=== PATIENT | female | born 1955 | race Caucasian/White ===

== ENCOUNTER 2025-05-10 16:29 | Observation (INO) | payer MEDICARE, SELFPAY ==
[2025-05-10] VITALS (13 sets, daily range): BP systolic 110–158; BP diastolic 56–71; BMI 28.8; BMI 27.9
[2025-05-10] MEDS: NSS 1000 IV (11:31)
[2025-05-10] MEDS: MORPHINE SULFATE 4 MG IV (11:32)
[2025-05-10 11:42] LABS: Hematocrit 29.4 % (37.0-47.0); Hemoglobin 10.1 g/dL (12.0-16.0); Mean Corp Hgb Conc. 34.4 g/dL (33.0-37.0); Mean Corpuscular Volume 107.7 fL (81.0-99.0); Nucleated Red Blood Cells % 0 %; Platelet Count 136 10^3/uL (130-400); Red Cell Dist. Width 18.5 % (11.5-14.5)
--- NOTE | 2025-05-10 11:56 | ED.GENMED ---
History of Present Illness
General
Chief Complaint: Generalized Pain
Source: patient
Exam Limitations: clinical condition
Time Seen by Provider: 05/10/25 10:55
Nursing documentation reviewed up to this point in time: agreed with
History of Present Illness
History of Present Illness:
Patient is a 69-year-old female with history of metastatic breast CA who presents emergency department via EMS after slip from her bed. Patient states she slighted off of her bed landing on her right side. She did not strike her head. 911 was
called to assist her back up and given her discomfort they transported her to the emergency department.
Patient states she had a headache and route to the emergency department however it is since resolved. She has pain in her right hip/pelvis. No neck pain or back pain. No chest pain or shortness of breath. No abdominal pain.
According to EMS records�patient is currently on hospice care. They arrived at her home and found her covered in urine and feces.
I spoke to patient's daughter on the phone who states that her mom was placed on hospice care last week after discharge from [facility]. She was under the impression that hospice care would assist in changing/cleaning her mom. She is not
sure how this hospice process works and is not confident that home is the best place for her mom.
Apparently patient's also lives in the home.
Review of Systems
Review of Systems
Allergies reviewed?: Yes
All Other Systems: ROS reviewed and negative except as documented in HPI and ROS
Phy Exam
Physical Exam
Physical Exam:
Vitals: Mildly hypertensive, otherwise vital signs stable. Afebrile
General: Patient is chronically ill and weak appearing.
Skin: Warm and dry. Ecchymosis noted to right inguinal region.
Head: Normocephalic, atraumatic
Eyes: Sclera nonicteric. EOMs intact. No nystagmus.
Throat: Protecting airway
Neck: Normal ROM, no cervical spine tenderness, no meningismus
Cardiac: Regular rate and rhythm, no murmurs.
Pulm: Normal respiratory effort, no wheezes, rales, rhonchi heard on exam
Abdomen: Abdomen soft and nontender
Extremities: Tenderness palpation in right hip/right inguinal region. No obvious deformity of right lower extremity. She has decent range of motion in right knee and right hip without discomfort. Tenderness to left shoulder without obvious
deformity. Limited range of motion secondary to pain. Distal pulses intact in bilateral upper and lower extremities
Neuro: AAOx3. No focal neurologic deficits.
Psychiatric: Normal affect.
Course
Orders/Labs/Results
Orders:
Orders
05/10/25 11:04
CT Head W/o Iv Contrast Urgent
Comment:
Reason For Exam: unwitnessed fall
Cervical Spine wo Contrast CT [CT Cervical Spine W/o Iv Contr] Urgent
Comment:
Reason For Exam: unwitnessed fall
0.9% Sodium Chloride 1000 ml [Nss] 1,000 ml IV BOLUS
Morphine Sulfate 4 mg IV NOW STA
Hips, Bilat 5 view W/AP Pelvis [CR Hips STACY w/wo Pel Min 5 Vw*] Urgent
Comment:
Reason For Exam: fall
Include a pelvis x-ray?: Yes
Shoulder, Left 2 View CR [CR Shoulder - Left Min 2 View*] Urgent
Comment:
Reason For Exam: fall, pain
05/10/25 11:19
Complete Blood Count/With Diff Urgent
Comprehensive Metabolic Panel Urgent
Creatine Phosphokinase Urgent
Comment: ADD
05/10/25 11:24
Case Management Consult ONCE
Case Management Consult: Hospice
Hospice: Evaluation and treat
05/10/25 12:01
Add On- LAB Urgent
Tests Added?: CPK
05/10/25 Dinner
Regular
At Your Request: Limited Participation
05/10/25 16:01
Admit/Transfer Patient As Directed
Co-Sign Provider:
Level of Care: Observation services
Assign to:: Inpatient Hospice
Physician / Group: [email or web address]
Diagnosis: Fall
05/10/25 16:02
Code Status As Directed
Resuscitation Status: Do not resuscitate
Reached after discussion with pt or family/Healthcare POA: Yes
DNR Bracelet Application ONCE
05/10/25 19:31
Acetaminophen [Tylenol] 650 mg PO Q4HPRN PRN
Ondansetron Injectable [Zofran] 4 mg IV Q6HPRN PRN
05/10/25 19:31
Admit Patient As Directed
Co-Sign Provider:
Level of Care: Inpatient admission
Assign to:: Inpatient Hospice
Physician / Group: hospitalists
Diagnosis: fall and not safe to go home
Reason for Hospitalization: Fall , pending respite care , unsafe to go home
Expected length of stay greater than two midnights?: Yes
ELOS- Estimated Length of Stay in days: 3
I certify the patient meets the requirements for IP care: Yes
VTE Contraindication Routine
VTE Mechanical Device Contraindication: Comfort Care mgmt
Pharmocologic Contraindication: Comfort Care mgmt
Activity As Directed
Activity Level: With Assistance
Comfort Measures As Directed
Comment: Pain and Dyspnea assessment every 4 hours
End of Life Symptom Assessment Q4
Vital Signs As Directed
Frequency: Per unit guidelines
05/10/25 19:36
Morphine Sulfate 4 mg IV Q4HPRN PRN
Abnormal Lab Results
05/10/25
11:19
RBC 2.73 L 10^6/uL
(4.20-5.40)
Hgb 10.1 L g/dL
(12.0-16.0)
Hct 29.4 L %
(37.0-47.0)
MCV 107.7 H fL
(81.0-99.0)
MCH 37.0 H pg
(27.0-31.0)
RDW 18.5 H %
(11.5-14.5)
MPV 10.9 H fL
(7.4-10.4)
Absolute Lymphs (auto) 0.5 L 10^3/uL
(1.2-3.4)
Absolute Monos (auto) 0.7 H 10^3/uL
(0.1-0.6)
Immature Gran % 0.7 H %
(0-0.5)
Lymphocytes % 8.5 L %
(20.5-51.1)
Monocytes % 13.3 H %
(1.7-9.3)
BUN 25 H mg/dl
(7-17)
Creatinine 1.6 H mg/dL
(0.6-1.0)
Glucose 107 H mg/dl
(70-99)
Calcium 11.0 H mg/dl
(8.4-10.2)
Total Bilirubin 2.5 H mg/dl
(0.2-1.3)
AST 94 H U/L
(14-36)
Alkaline Phosphatase 240 H U/L
(38-126)
Creatine Kinase 301 H U/L
(30-135)
Total Protein 5.9 L g/dl
(6.3-8.2)
Albumin 3.2 L g/dl
(3.5-5.0)
05/10/25 11:19
05/10/25 11:19
Vital Signs
Initial and Last Documented VS:
Initial Vital Signs
Pulse Resp
74 13
05/10/25 07:40 05/10/25 07:40
Last Documented Vital Signs
Temp Pulse Resp BP Pulse Ox
97.7 F 72 16 127/65 97
05/10/25 23:42 05/10/25 23:42 05/10/25 23:42 05/10/25 23:42 05/10/25 23:42
MDM/Problems Addressed
Differential Diagnosis Includes:
Not limited to: Hip fracture, pelvic fracture, acute dehydration, rhabdomyolysis, progression of disease, elder abuse, etc.
MDM/Problems Addressed:
71-year-old chronically ill female presented via EMS after being found on the floor following a fall from bed. Unknown head strike. EMS reported the patient was found saturated in urine and feces. On arrival to ED, patient appeared chronically ill
but was hemodynamically stable and alert and oriented. No obvious external traumatic injuries noted, but patient reported tenderness in right hip and left shoulder.
Initially unclear whether patient was enrolled in hospice care. Proceeded with standard trauma workup including labs, non-contrast CT of the head and cervical spine, and imaging of right hip and left shoulder to evaluate for occult injuries.
Spoke with patient�s daughter who confirmed that the patient is on hospice for metastatic breast cancer, but expressed that she is currently unable to provide adequate care at home given the patient�s needs.
Basic lab work was notable for anemia and elevated liver function tests, both likely related to known metastatic disease. Imaging revealed no acute traumatic injuries.
Case management consulted. Hospice team confirmed that patient is enrolled in hospice services. In light of patient's hospice status and absence of acute injury, no further diagnostic testing or treatment will be pursued aside from supportive
measures and pain control.
Social concerns noted � current home environment does not appear safe or sustainable for patient care. Hospice team is arranging respite care and working toward placement in a retirement facility, but no placement available tonight.
Patient admitted to hospital as a fci admit for continued supportive care pending disposition. Hospitalist service is aware and accepting.
Chronic conditions affecting care:
Metastatic breast CA
*Pulse Oximetry
SaO2: 99
Oxygen Mode of Delivery: Room air
Patient hypoxic: no
*EKG
Interpreted by ED Provider?: NA
*Braddisher Interpretation
Rate: normal
Interpretation: normal
Heart Rate: 72
Rhythm: sinus
*Critical Care Note
Total Time (30-74mins, 75-104mins- exclusive of procedures): Not Applicable
Patient Management
Discussion with other providers: Hospitalist
ED Attending Note
-
Portions of this chart may have been created with voice recognition software.� Occasional wrong word or��sound alike� substitutions may have occurred due to the inherent limitations of voice recognition software.
Discharge Plan
Departure
Patient Disposition: Admit
Date of Disposition: 05/10/25
Time of Disposition: 15:23
Presentation/result/management discussed w/ accepting MD/DO: Hospitalist
Discharge Problem:
Hospice care, Generalized pain
Interventions
Interventions:
*Risk Screen - Suicide Last Done: 05/10/25 07:40
*General Assessment Last Done: 05/10/25 07:40
*Neglect/Abuse Screening Last Done: 05/10/25 10:00
*ED- Fall Risk Assessment Last Done: 05/10/25 19:29
*ED COVID-19 Vaccine History Last Done: 05/10/25 07:40
*ED Influenza Vaccine History Last Done: 05/10/25 07:40
*Nursing Disposition Last Done: 05/10/25 19:29
Discharge Date and Time
Discharge Date/Time: 05/10/25 19:30
[2025-05-10 11:57] LABS: ALT (SGPT) 32 U/L (0-35); AST (SGOT) 94 U/L (14-36); Albumin 3.2 g/dl (3.5-5.0); Alkaline Phosphatase 240 U/L (38-126); Blood Urea Nitrogen 25 mg/dl (7-17); Calcium 11.0 mg/dl (8.4-10.2); Carbon Dioxide 26 mmol/L (22-30); Chloride 103 mmol/L (98-107); Estimated Creatinine Clearance 32 ml/min; Glucose 107 mg/dl (70-99); Potassium 3.7 mmol/L (3.5-5.1); Sodium 135 mmol/L (135-145); Total Protein 5.9 g/dl (6.3-8.2); eGFR 34.27
--- NOTE | 2025-05-10 12:58 | CM ---
Addendum entered by Phuong Garcia 05/10/25 15:37:
Hook Loader of [facility] called back to state that patient is not able to return home safely at this time. Patient is to remain on Hospice, and per route process administrator she is looking for emergency short term hospice respite at [place]
[facility] or [facility] in [place]. CM updated ED. Patient to remain at hospital until placement located for patient safety.
Addendum entered by Phuong Garcia 05/10/25 13:33:
CM spoke with route process administrator at [facility]. they are calling family to discuss options. they are suggesting that short stay at [facility] in [place] may be a good option. Hook Loader will call back to CM with update.
Original Note:
Patient seen at bedside in ED. Patient states she was on hospice already for 4 days. Patient somewhat confused about who she lives with and what is happening. Patient daughter states that patient was discharged home last sunday on [facility]
from [facility]. Patient daughter indicated that she did not have information about expectations or know what was going on. When patient was seen by EMT apparently they asked if she wanted to go to the hospital and she said yes. Patient now
not indicating that she wants to stay. CM called to liaison at [facility] and per Liaison patient was signed on to [facility] 05/05. there have been multipule visits and some missed visits but patient family has many questions. CM called
to office at [phone] to confirm what patient status is and levels of care available. Nurse from [facility] indicated that they will send a nurse to and to talk to the patient family to confirm plan of care and clarify patient family
questions. CM will continue to follow for discharge planning needs.
Plan;[facility] pending family discussion
--- NOTE | 2025-05-10 15:37 | HPS.HSE ---
Family Physician
-
Family Physician: NOT KNOW UNKNOWN - PT DOES
Chief Complaint
-
Slipped from bed , home hospice with [facility]
History of Present Illness
HPI
69F HX metastatic breast CA, on home hospice bib EMS to ER
- evaluation for reported slipping out of bed- states she slighted off of her bed landing on her right side.
- did not strike her head. 911 was called to assist her back up and given her discomfort they transported ER
- pain in her right hip/pelvis.
- no neck pain or back pain.
Currently on hospice care by [facility]
Apparently patient's also lives in the home.
ER attd dw s daughter on the phone who states that her mom was placed on hospice care last week after discharge from [facility]. She was under the impression that hospice care would assist in changing/cleaning her mom. She is not sure how
this hospice process works and is not confident that home is the best place for her mom.
Medical History
Past Medical History
Past Medical History: Reports Cancer (mewtastatic breast CA on home hospice )
Past Surgical History: Reports Other (not available )
Social History
Unable to obtain full social history at this time due to: Other (hospice care )
Living: With Family
Family History
Family History: Not pertinent
Allergies / Home Medications
Allergies reflects when Allergies were last updated in [facility].
Home Medications with original date entered in [facility]
Allergy/Medication List:
Allergies
Allergy/AdvReac Type Severity Reaction Status Date / Time
No Known Allergies Allergy Unverified 05/10/25 07:39
Review of Systems
-
Constitutional: Reports No Symptoms
EENT: Reports No Symptoms
Respiratory: Reports No Symptoms
Cardiac: Reports No Symptoms
Abdomen/GI: Reports No Symptoms
: Reports No Symptoms
Musculoskeletal: Reports See HPI
Skin: Reports No Symptoms
Neurological: Reports No Symptoms
Endocrine: Reports No Symptoms
Hematologic/Lymphatic: Reports No Symptoms
Psych: Reports No Symptoms
Physical Exam
Vital Signs
Vital Signs
Temp Pulse Resp BP Pulse Ox
97.4 F 71 21 130/61 97
05/10/25 07:45 05/10/25 15:00 05/10/25 15:00 05/10/25 11:00 05/10/25 15:00
Physical Exam
General: Well Developed, Well Nourished, No Apparent Distress, Comfortable and Other (obese )
HEENT: NormoCephalic, Moist mucous membranes and Atraumatic
Respiratory: Clear
Cardiac: S1/S2 and Regular Rhythm; No Murmur or Rub
GI: Soft, Non Tender, Non Distended and Normal Bowel Sounds; No Organomegaly
Rectal: Deferred by Provider
Musculoskeletal: No Clubbing, No Cyanosis and No Edema
Skin: No Rash
Neuro: Nonfocal/grossly intact
Psych: Calm; No Confused
Laboratory Results
-
05/10/25 11:19
05/10/25 11:19
Laboratory Results
Total Bilirubin 2.5 mg/dl (0.2-1.3) H 05/10/25 11:19
AST 94 U/L (14-36) H 05/10/25 11:19
ALT 32 U/L (0-35) 05/10/25 11:19
Alkaline Phosphatase 240 U/L (38-126) H 05/10/25 11:19
Data Reviewed
-
Diagnostic Radiology: Report Reviewed by me
CT Scan: Report Reviewed by me
Lab Data: Labs Reviewed by me
Impression/Plan
-
05/10/25
11:19
WBC 5.4
Hgb 10.1 L
MCV 107.7 H
Plt Count 136
BUN 25 H
Creatinine 1.6 H
Calcium 11.0 H
Total Bilirubin 2.5 H
AST 94 H
L shoulder XR
No evidence of acute fracture
B/L Hip and pelvis XR
- No evidence of acute osseous injury.
- Findings consistent with severe diffuse blastic osseous metastatic disease.
- Postsurgical change of the left hip. No evidence of complication.
- Mild right hip osteoarthritis.
- Mild lower lumbar spine degenerative disease.
HCT and CT Cervical Spine W/o Iv Contr; CT Head W/o Iv Contrast
1. No acute intracranial abnormality noted.
2. 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
Underlying mass in this region not definitely excluded. Consider nonemergent MRI brain without and with gadolinium contrast.
3. No acute fracture or subluxation of the cervical spine. Multilevel degenerative changes of the cervical spine.
4. Heterogeneous left thyroid lobe with probable underlying nodules.
5. Extensive sclerotic osseous metastatic disease.
6. Partially visualized bilateral pleural effusions.
No prior hospitalist admission:
ASSESSMENT & PLAN
Fall without apparent injury
Home hospice patient follow by [facility]
Diffuse metastatic Breast Ca with extensive sclerotic osseous metastatic disease plus FRANCHISE BROKER ?
Renal insufficiency
Unsafe going home per ER CRM and ER attd evaluation
- Hold off HCTZ
- Meds and supportive care appropriate for hospice care is ordered
- Pending respite care and placement at SNF hopefully tomorrow
- CRM will follow up
DVT Px:NA
DNR per family per CRM
OBS
--- NOTE | 2025-05-10 21:30 | TRANSFER ---
Pt transferred to 3w from ed via stretcher. Pulled over to hospital bed. Pt Lethargic but arousable, appropriately answers orientation questions x3. Pt oriented to room, call marroquin within reach, plan of care ongoing.
[2025-05-11 03:50] VITALS: BP 93/61
[2025-05-11 07:20] VITALS: BP 137/56
--- NOTE | 2025-05-11 08:44 | W.PN.HOSP.TC ---
Addendum entered and electronically signed by Juan David Lucas MD 05/11/25 13:59:
attempted to call daughter - left VM
Please use D/C billing instead of billing under this note
Original Note:
Today's Communication/Plan
-
placement
Assessment / Plan
Assessment / Plan
69yo F with metastatic breast CA to bones, liver, brain, on hospice care at home, hypothyroidism, anxiety d/o, insomnia, DM, HTN, neuropathy, arrhythmia sent from home after she sled outt of the bed and her was unable to help her. Patient
stated that her goal is comfort and she does not ant any intervertion and interested to continue on hospice, however she realizing that she unlikely will be able to continue at home, since needs more care then her family can provide.
A/P:
#Metastatic breast CA
#Elevated alk.phos, bilirubin 2/2 above
#Anemia 2/2 above
PAtient is willing to continue on hospice care
CM consult for hospice (unclear if [facility] can continue or will need hospice)
Placement by CM
patient would like to establish comfort care, does not want any additional ivestigational studies or treatment besides of symptomatic medications for pain, anxiety, constipation or insomnia
#Fall
XR shoulder, hip and CT head, neck without Fx
#Possible head tumor with minimal vasogenic edema
no neurological dficit
patient on hospice
#HLD
#Arrhythmia
#Anxiety
#Hypothyroidism
Patient is unclear if she was continuing that at home
DVT ppx NA
DNR/DNI
I have spent at least 58min reviewing chart, test results and providing direct patient care
Attempted to reach daughter over the phone, but unable to
Anticipated Discharge: Within 24 hours
Subjective/Interval History
-
Date of Service: May 11, 2025
Objective Data
-
Vital Signs:
Vital Signs
Temp Pulse Resp BP Pulse Ox
96.6 F L 75 17 137/56 97
05/11/25 07:20 05/11/25 07:20 05/11/25 07:20 05/11/25 07:20 05/11/25 07:20
I&O
05/10/25 05/11/25 05/12/25
06:59 06:59 06:59
Intake Total 480 / 480
Output Total 300 / 300
Balance 180 / 180
Review of Systems
-
History Source: Patient
All other systems: Reviewed and negative
Physical Exam
-
General: No Apparent Distress
Neuro: Awake, Alert, Oriented and AO x 3
Psych: Calm
[2025-05-11] MEDS: ROXICODONE 5 MG PO (09:29)
[2025-05-11 11:30] VITALS: BP 146/73
--- NOTE | 2025-05-11 11:41 | VATNOTE ---
EMS IV intact without s/s phlebitis or infection. IV change deferred as it wouldn't be consistent with pt's goals of care: hospice.
--- NOTE | 2025-05-11 12:13 | CM ---
Pt alert able to answer some questions .
Spoke with [facility] spoke with Blanca. she located [facility] for Respite SNF care.
Referral for [facility] and [facility] sent via care port.
Spoke with Dania at [facility] she received referral an c an accept today .
Pt will need ambulance. Medical nec form completed.
DNR OOH form signed by MD.
LM with dgt to review plan and AGUILAR and IMM letter.
[facility]
address [address] , [place] [address]
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

[facility] hospice fax [phone]
PLAN To [facility]
[2025-05-11] MEDS: MORPHINE SULFATE 2 MG IV (12:37)
--- NOTE | 2025-05-11 14:00 | W.DCSUMMARY ---
Discharge Summary
Discharge Data
Date of Admission: 05/10/25
Date of Discharge: 05/11/25
-
Pending Results: No
Hospital Course
69yo F with metastatic breast CA to bones, liver, brain, on hospice care at home, hypothyroidism, anxiety d/o, insomnia, DM, HTN, neuropathy, arrhythmia sent from home after she sled outt of the bed and her was unable to help her. Patient
stated that her goal is comfort and she does not ant any intervertion and interested to continue on hospice, however she realizing that she unlikely will be able to continue at home, since needs more care then her family can provide.
I have spent at least 58min reviewing chart, test results and providing direct patient care
Patient was managed for:
#Metastatic breast CA
#Elevated alk.phos, bilirubin 2/2 above
#Anemia 2/2 above
#Fall
#Possible head tumor with minimal vasogenic edema
#HLD
#Arrhythmia
#Anxiety
#Hypothyroidism
Discharge Plan
-
Patient Disposition: Hospice - Inpatient
Discharge Diagnosis/Procedures: breast cancer
Diet: Regular
Activity: As tolerated
Referrals:
UNKNOWN - PT DOES,NOT KNOW [Family Provider]
Prescriptions:
New
oxycodone 10 mg tablet
10 mg PO Q6H PRN (Reason: Pain) Qty: 8 0RF
ondansetron 4 mg tablet,disintegrating
4 mg PO Q8H PRN (Reason: nausea and vomiting) Qty: 30 0RF
Continued
hydrochlorothiazide 12.5 mg Tablet
12.5 mg PO DAILY
gabapentin 600 mg Tablet
1,200 mg PO BID
atorvastatin [Lipitor] 20 mg Tablet
20 mg PO DAILY
amiodarone 200 mg Tablet
200 mg PO DAILY
propranolol 40 mg Tablet
40 mg PO DAILY
levothyroxine [Synthroid] 50 mcg Tablet
50 mcg PO DAILY
buspirone 10 mg Tablet
10 mg PO DAILY
zolpidem [Ambien] 10 mg Tablet
10 mg PO HSPRN PRN (Reason: sleep)
duloxetine 30 mg Capsule,Delayed Release(Dr/Ec)
30 mg PO DAILY
Januvia 50 mg Tablet
50 mg PO DAILY
oxycodone 15 mg Tablet
15 mg PO Q6HPRN PRN (Reason: severe pain)
Discharge Orders:
Discharge Patient (As Directed); Ordered 05/11/25
Ordered By: Juan David Lucas
Discharge Date and Time
Print Language: ETHIOPIAN
--- NOTE | 2025-05-11 15:07 | CM ---
MD entered order for discharge.
Spoke with son Osmin he said he will drive her home today.
Offered VB he declined need.
IMM reviewed with son He agrees with dc.
PLAN Home no needs
[2025-05-11 15:22] VITALS: BP 145/59
== END 2025-05-11 16:39 ==
LOC: 3 WEST ACU 16:29
PROVIDERS: Physician Assistant; ADMITTING PHYSICIAN Internal Medicine; ATTENDING PHYSICIAN Internal Medicine; EMERGENCY PHYSICIAN Student in an Organized Health Care Education/Training Program
DX: R51.9 Headache, unspecified (principal); C50.919 Malignant neoplasm of unspecified site of unspecified female breast; C79.31 Secondary malignant neoplasm of brain; W06.XXXA Fall from bed, initial encounter; Y93.89 Activity, other specified; Y92.003 Bedroom of unspecified non-institutional (private) residence as the place of occurrence of the external cause; C78.7 Secondary malignant neoplasm of liver and intrahepatic bile duct; C79.51 Secondary malignant neoplasm of bone; I10 Essential (primary) hypertension; D64.9 Anemia, unspecified; R79.89 Other specified abnormal findings of blood chemistry; M47.816 Spondylosis without myelopathy or radiculopathy, lumbar region; M51.369 Other intervertebral disc degeneration, lumbar region without mention of lumbar back pain or lower extremity pain; J90 Pleural effusion, not elsewhere classified; M47.812 Spondylosis without myelopathy or radiculopathy, cervical region; N28.9 Disorder of kidney and ureter, unspecified; M16.11 Unilateral primary osteoarthritis, right hip; G93.6 Cerebral edema; M19.012 Primary osteoarthritis, left shoulder; R74.8 Abnormal levels of other serum enzymes; E78.5 Hyperlipidemia, unspecified; I49.9 Cardiac arrhythmia, unspecified; F41.9 Anxiety disorder, unspecified; E03.9 Hypothyroidism, unspecified; E11.40 Type 2 diabetes mellitus with diabetic neuropathy, unspecified; G47.00 Insomnia, unspecified; Z66 Do not resuscitate; Z51.5 Encounter for palliative care; Z75.1 Person awaiting admission to adequate facility elsewhere
CPT/HCPCS: 70450; 72125; 73030; 73523; 80053; 82550; 85025; 96361; 96374; 99284; G0378